=== PATIENT | male | born 1995 | race Two or more races ===

== ENCOUNTER 2018-05-06 02:23 | Emergency (ER) | payer OTHER ==
[~2018-05-06] VITALS: Ht 165.1 cm; Wt 63.5 kg
== END 2018-05-06 08:44 | disposition home or self-care (01) ==
LOC: ER 02:23
DX: R07.89 Other chest pain (principal); T39.1X5A Adverse effect of 4-Aminophenol derivatives, initial encounter; T40.7X5A Adverse effect of cannabis (derivatives), initial encounter

== ENCOUNTER 2018-05-06 11:03 | Emergency (ER) | payer OTHER ==
[~2018-05-06] VITALS: Ht 165.1 cm; Wt 63.5 kg
== END 2018-05-06 14:57 | disposition home or self-care (01) ==
LOC: ER 11:03
DX: R07.89 Other chest pain (principal); F06.4 Anxiety disorder due to known physiological condition

== ENCOUNTER → 2018-05-06 | Emergency (ER) | payer OTHER ==
[~2018-05-06] VITALS: Ht 165.1 cm; Wt 63.5 kg
== END | disposition home or self-care (01) ==
LOC: ER 21:23
DX: F06.4 Anxiety disorder due to known physiological condition (principal)

== ENCOUNTER 2023-09-17 13:13 | Inpatient (IN) | payer OTHER ==
[~2023-09-17] VITALS: Ht 165.1 cm; Wt 71.7 kg
--- NOTE | 2023-09-17 13:39 | NUR ---
SE RECIBE PTE ALERTA Y ORIENTADO X3. REFIERE DOLOR DE PECHO Y DOLOR EN BRAZO ALICE. SE MIDE SV, BP 158/100. SE REALIZA EKG Y SE PRESENTA A DRA. CHANG. SE UBICA A PTE EN K7 Y SE CONECTA A MONITOR CARDIACO Y OXIMETRIA DE PULSO.
[2023-09-17] MEDS ORDERED: MORPHINE SULFATE 4 MG/ML CARTRIDGE IV ONE (13:45)
[2023-09-17] MEDS ORDERED: FAMOtidine 10 MG/ML (4ML VIAL) IV ONE (13:45)
[2023-09-17] MEDS ORDERED: ONDANSETRON HCL 2 MG/ML VIAL IV ONE (13:45)
[2023-09-17] MEDS ORDERED: 0.9 % SODIUM CHLORIDE 1,000 ML IV ONE (13:45)
[2023-09-17] MEDS ORDERED: ONDANSETRON HCL 2 MG/ML VIAL ONE ×2 (14:02→22:09)
[2023-09-17] MEDS ORDERED: FAMOTIDINE/PF 20 MG/2 ML VIAL ONE (14:02)
--- NOTE | 2023-09-17 14:03 | NUR ---
PTE ALERTA Y ORIENTADO X3, RN HILTON EDUCA A PTE SOBRE TX MEDICO, EL MISMO REFIERE ENTENDER. SE ESTEPHANIA MUESTRAS DE LAB BAJO MEDIDAS ASEPTICAS Y SE ADMINISTRAN MEDICAMENTOS DERRICK ORDEN MEDICA. SE NOTIFICA PLACA PENDIENTE.
[2023-09-17 14:25] LABS: ABG PH 7.421 (7.35-7.45)
[2023-09-17 14:26] LABS: ABG PO2 86.2 mmHg (80-100); BICARBONATE 22.9 mmol/l (23-25); SaO2 96.7 %; allen test SATISFACTORY; o2 21 %; puncture site RADIAL LEFT
[2023-09-17 15:15] LABS: HEMATOCRIT 46.6 % (39.0-48.0); HEMOGLOBIN 16.4 g/dL (13-16.00); MEAN CELL VOLUME 90.3 fL (80.0-100.00); MEAN CORPUSCULAR HEMOGLOBIN 31.7 pg (27.00-32.0); MEAN CORPUSCULAR HGB CONC 35.1 g/dl (32.0-36.0); PLATELET COUNT 159 K/uL (150-450); RED BLOOD COUNT 5.17 M/uL (4.00-6.00); RED CELL DISTRIBUTION WIDTH 12.9 % (11.5-14.5)
[2023-09-17 15:38] LABS: AMYLASE 55 U/L (25-115); LIPASE 25 U/L (13-75)
[2023-09-17 15:44] LABS: ALBUMIN 4.6 gm/dL (3.4-5.0); BILIRUBIN TOTAL 0.59 mg/dL (0.3-1.2); CALCIUM 9.5 mg/dL (8.5-10.1); CREATININE SERUM 0.83 mg/dL (0.70-1.30); GFR 110.32; GLOBULINA 3.6 G/DL (2.4-3.5); POTASSIUM 4.15 mEq/L (3.5-5.1); TOTAL PROTEIN 8.2 gm/dL (6.4-8.2)
[2023-09-17 15:51] LABS: PH,URINE 5.5 (5.0-8.0); URINE APPEARANCE Clear; URINE BILIRRUBIN Negative (NEGATIVE); URINE BLOOD Negative; URINE COLOR Yellow; URINE GLUCOSE Negative (NEGATIVE); URINE KETONE Negative (NEGATIVE); URINE LEUKOCYTE Negative; URINE NITRATE Negative; URINE PROTEIN Negative (NEGATIVE); URINE UROBILINOGEN 0.2 E.U./dl
[2023-09-17 15:55] LABS: URINE RBC 3.6 uL (0.0-20.8)
[2023-09-17 16:03] LABS: URINE BACTERIA 1.2 uL (0.0-1933); URINE EPITHELIAL CELLS 0.9 uL (0.0-38.8)
--- NOTE | 2023-09-17 16:16 | NUR ---
SE RECIBE PTE MASCULINO DE 28 ANOS AAOX3 QUIEN AL MOMENTO REFIERE LEVE DOLOR EN PECHO Y BRAZO. PTE AL MOMENTO SE OBSERBA EN DESCANSO ABSOLUTO CONECTADO A MONITOR CARDIACO TRINA. PTE PEND A RESULTADOS DE LAB Y REALIZACION DE IMAGENES.
[2023-09-17] MEDS ORDERED: NITROGLYCERIN IN 5 % DEXTROSE 50 MG/250 ML BOTTLE IV ONE ×2 (17:13→17:15)
[2023-09-17] MEDS ORDERED: ASPIRIN 325 MG TABLET PO ONE (17:15)
[2023-09-17] MEDS ORDERED: TICAGRELOR 90 MG TABLET PO ONE (17:15)
--- NOTE | 2023-09-17 17:27 | NUR ---
SE RECIBE PACIENTE EN AREA DE ICU #2. SE COLOCA EN CAMA #3. PACIENTE ALERTA Y ORIENTADO X 3. SE CONECTA A MONITOR CARDIACO CON SATUROMETRO. SE ADMINISTRAN MEDICAMENTOS DERRICK ORDEN MEDICA. IVF'S PATENTES BAJANDO TRIDIL A 3 MLS/HR POR ANGIO #20 EN MANO IZQ, AREA THERESA DE EDEMA Y/O ERITEMA. BARANDAS ELEVADAS Y CAMA EN POSICION MAS BAJA POR TURNER SEGURIDAD.
[2023-09-17] MEDS ORDERED: 0.9 % SODIUM CHLORIDE 1,000 ML IV SCH (21:45)
[2023-09-17] MEDS ORDERED: ENOXAPARIN SODIUM 80 MG/0.8 ML SYRINGE SUBCUTANEO SCH (21:49)
[2023-09-17] MEDS ORDERED: ATORVASTATIN CALCIUM 40 MG TABLET PO SCH (21:50)
[2023-09-17] MEDS ORDERED: NITROGLYCERIN IN 5 % DEXTROSE 250 ML IV SCH (22:00)
[2023-09-17] MEDS ORDERED: ACETAMINOPHEN 500 MG GEL..CAP PO PRN (22:00)
[2023-09-17] MEDS ORDERED: MORPHINE SULFATE 4 MG/ML VIAL IV PRN (22:00)
[2023-09-17] MEDS ORDERED: ONDANSETRON HCL 4 MG in 0.9 % SODIUM CHLORIDE 50 ML IV PRN (22:00)
[2023-09-17] MEDS ORDERED: ENOXAPARIN SODIUM 80 MG/0.8 ML SYRINGE SUBCUTANEO ONE (22:10)
[2023-09-18 00:10] LABS: CKMB 1.3 NG/ML (0.5-3.6)
[2023-09-18 07:20] LABS: ALBUMIN 4.3 gm/dL (3.4-5.0); BILIRUBIN TOTAL 0.91 mg/dL (0.3-1.2); BILIRUBIN,CONJUGATED 0.2 mg/dL (0.0-0.2); BILIRUBIN,UNCONJUGATED 0.71 mg/dL (0.0-0.6); CALCIUM 9.3 mg/dL (8.5-10.1); CHOL HDL RATIO 4.3 (0-5.0); CREATININE SERUM 0.82 mg/dL (0.70-1.30); GFR 111.87; GLOBULINA 3.6 G/DL (2.4-3.5); POTASSIUM 4.18 mEq/L (3.5-5.1); TOTAL PROTEIN 7.9 gm/dL (6.4-8.2)
[2023-09-18 07:24] LABS: C-REACTIVE PROTEIN 7.62 MG/DL (0.00-0.29)
[2023-09-18 07:26] LABS: INR 1.12; PROTHROMBIN TIME 11.7 SECONDS (9.0-11.5)
[2023-09-18 07:47] LABS: PARTIAL THROMBOPLASTIN TIME 38.3 SECONDS (22.0-34.0)
[2023-09-18 07:53] LABS: HEMATOCRIT 45.5 % (39.0-48.0); MEAN CELL VOLUME 89.1 fL (80.0-100.00); MEAN CORPUSCULAR HEMOGLOBIN 31.3 pg (27.00-32.0); MEAN CORPUSCULAR HGB CONC 35.2 g/dl (32.0-36.0); PLATELET COUNT 178 K/uL (150-450)
[2023-09-18 08:43] LABS: URINE APPEARANCE Clear; URINE BILIRRUBIN Negative (NEGATIVE); URINE BLOOD Negative; URINE COLOR Yellow; URINE GLUCOSE Negative (NEGATIVE); URINE KETONE Negative (NEGATIVE); URINE LEUKOCYTE Negative; URINE NITRATE Negative; URINE PROTEIN Negative (NEGATIVE)
[2023-09-18 08:44] LABS: URINE BACTERIA 6.3 uL (0.0-1933); URINE EPITHELIAL CELLS 2.1 uL (0.0-38.8); URINE RBC 12.5 uL (0.0-20.8); URINE WBC 4.9 uL (0.0-23.2)
[2023-09-18 08:51] LABS: URINE CAST 0.15 uL (0.0-1.40)
[2023-09-18 08:54] LABS: ERYTHROCYTE SEDIMENTATION RATE 23 mm/hr
[2023-09-18] MEDS ORDERED: TICAGRELOR 90 MG TABLET PO SCH (09:00)
[2023-09-18] MEDS ORDERED: FAMOTIDINE/PF 20 MG in 0.9 % SODIUM CHLORIDE 8 ML IV PUSH SCH (09:00)
[2023-09-18 09:56] LABS: CKMB 16.9 NG/ML (0.5-3.6)
[2023-09-18 14:59] LABS: CKMB 52.9 NG/ML (0.5-3.6)
[2023-09-21] MEDS ORDERED: ENOXAPARIN SODIUM 40 MG/0.4 ML SYRINGE SUBCUTANEO SCH (09:00)
== END 2023-09-21 13:42 | disposition home or self-care (01) | DRG 315 ==
LOC: ER 13:14 → MEDI 22:16
PROVIDERS: General Practice; ADMIT Internal Medicine; ATTEND Internal Medicine
PROC: 4A12X4Z Monitoring of Cardiac Electrical Activity, External Approach (ICD-10-PCS; principal; 2023-09-17)
PROC: BW21YZZ Computerized Tomography (CT Scan) of Abdomen and Pelvis using Other Contrast (ICD-10-PCS; 2023-09-17)
PROC: BB24YZZ Computerized Tomography (CT Scan) of Bilateral Lungs using Other Contrast (ICD-10-PCS; 2023-09-17)
PROC: B246ZZZ Ultrasonography of Right and Left Heart (ICD-10-PCS; 2023-09-18)
PROC: B246ZZZ Ultrasonography of Right and Left Heart (ICD-10-PCS; 2023-09-20)
DX: I40.0 Infective myocarditis (principal); I24.9 Acute ischemic heart disease, unspecified; A05.9 Bacterial foodborne intoxication, unspecified; D72.821 Monocytosis (symptomatic)

== ENCOUNTER → 2023-10-14 | Emergency (ER) | payer OTHER ==
[~2023-10-14] VITALS: Ht 165.1 cm; Wt 68.0 kg
== END | disposition left against medical advice (07) ==
LOC: ER 08:57
DX: Z53.21 Procedure and treatment not carried out due to patient leaving prior to being seen by health care provider (principal)

== ENCOUNTER 2024-09-28 08:37 | Emergency (ER) | payer OTHER ==
[~2024-09-28] VITALS: Ht 162.6 cm; Wt 68.0 kg
[2024-09-28 09:55] LABS: BASO % 0.6 % (0.1-1.2); EOS # 0.40 (0.04-0.54); EOS % 5.1 % (0.7-7.0); LYMPH # 3.14 (1.18-3.74); LYMPH % 39.7 % (19.3-53.1); MEAN PLATELET VOLUME 9.90 fl (9.4-12.4); MONO # 0.79 (0.24-0.82); MONO % 10.0 % (4.7-12.5); NEUT # 3.50 (1.56-6.13); NEUT % 44.3 % (34.0-71.1); RED CELL DISTRIBUTION WIDTH 11.7 % (11.6-14.4)
[2024-09-28 10:36] LABS: ALT/SGPT 49.0 U/L (12-78); AST/SGOT 29.0 U/L (15-37); BILIRUBIN TOTAL 0.47 mg/dL (0.3-1.2); BUN CREA RATIO 21.0 (7.0-25.0); CREATININE SERUM 0.81 mg/dL (0.70-1.30); GFR 112.66; GLOBULINA 3.9 G/DL (2.4-3.5); GLUCOSE FASTING 89.0 mg/dL (65-100); OSMOLALITY SERUM 282.0 MOSM/KG (275-295)
[2024-09-28 10:56] LABS: URINE APPEARANCE Clear; URINE BILIRRUBIN Negative (NEGATIVE); URINE BLOOD Negative; URINE COLOR Yellow; URINE GLUCOSE Negative (NEGATIVE); URINE KETONE Negative (NEGATIVE); URINE LEUKOCYTE Negative; URINE NITRATE Negative; URINE PROTEIN Negative (NEGATIVE); URINE UROBILINOGEN 1.0 E.U./dl
[2024-09-28 11:00] LABS: URINE BACTERIA 4.7 uL (0.0-1933); URINE EPITHELIAL CELLS 2.3 uL (0.0-38.8); URINE RBC 5.4 uL (0.0-20.8); URINE WBC 12.7 uL (0.0-23.2)
[2024-09-28 11:25] LABS: URINE CAST 0.00 uL (0.0-1.40)
== END 2024-09-28 12:42 | disposition home or self-care (01) ==
LOC: ER 08:37
PROVIDERS: Emergency Medicine
DX: R07.9 Chest pain, unspecified (principal)

== ENCOUNTER 2025-02-09 06:11 | Emergency (ER) | payer OTHER ==
[~2025-02-09] VITALS: Ht 165.1 cm; Wt 68.0 kg
[2025-02-09] MEDS ORDERED: FAMOTIDINE/PF 20 MG/2 ML VIAL IV STA (08:16)
[2025-02-09] MEDS ORDERED: 0.9 % SODIUM CHLORIDE 1,000 ML IV STA ×2 (08:16→13:41)
[2025-02-09] MEDS ORDERED: ONDANSETRON HCL 2 MG/ML VIAL IV STA (08:16)
[2025-02-09 08:47] LABS: BASO % 0.3 % (0.1-1.2); EOS # 0.01 (0.04-0.54); EOS % 0.1 % (0.7-7.0); LYMPH # 0.99 (1.18-3.74); LYMPH % 8.8 % (19.3-53.1); MEAN PLATELET VOLUME 9.70 fl (9.4-12.4); MONO # 1.18 (0.24-0.82); MONO % 10.5 % (4.7-12.5); NEUT # 8.95 (1.56-6.13); NEUT % 80.0 % (34.0-71.1); RED CELL DISTRIBUTION WIDTH 11.9 % (11.6-14.4)
[2025-02-09 09:09] LABS: INR 1.14
[2025-02-09 09:28] LABS: ALT/SGPT 54.0 U/L (12-78); AST/SGOT 24.0 U/L (15-37); BILIRUBIN TOTAL 1.35 mg/dL (0.3-1.2); BUN CREA RATIO 16.0 (7.0-25.0); CREATININE SERUM 0.92 mg/dL (0.70-1.30); GFR 97.26; GLOBULINA 4.2 G/DL (2.4-3.5); GLUCOSE FASTING 119.0 mg/dL (65-100); OSMOLALITY SERUM 278.0 MOSM/KG (275-295)
[2025-02-09 10:12] LABS: COVID-19 AG NEGATIVE (NEGATIVE)
[2025-02-09 11:45] LABS: URINE APPEARANCE Clear; URINE BILIRRUBIN Negative (NEGATIVE); URINE BLOOD Negative; URINE COLOR Dark Yellow; URINE GLUCOSE Negative (NEGATIVE); URINE KETONE 15 (NEGATIVE); URINE LEUKOCYTE Negative; URINE NITRATE Negative; URINE PROTEIN Trace (NEGATIVE); URINE UROBILINOGEN 1.0 E.U./dl
[2025-02-09 11:47] LABS: URINE BACTERIA 10.2 uL (0.0-1933); URINE EPITHELIAL CELLS 2.9 uL (0.0-38.8); URINE RBC 15.2 uL (0.0-20.8); URINE WBC 9.1 uL (0.0-23.2)
[2025-02-09 12:00] LABS: URINE CAST 0.14 uL (0.0-1.40)
[2025-02-09] MEDS ORDERED: CEFTRIAXONE SODIUM 1,000 MG VIAL IM STA (13:04)
[2025-02-09] MEDS ORDERED: METRONIDAZOLE/SODIUM CHLORIDE 500 MG/100 ML PIGGYBACK IV STA (13:40)
[2025-02-09] MEDS ORDERED: CIPROFLOXACIN IN 5 % DEXTROSE 400 MG/200 ML PIGGYBAG IV STA (13:40)
[2025-02-09] MEDS ORDERED: PEPCID AC20 MG PO (14:36)
== END 2025-02-09 17:20 | disposition home or self-care (01) ==
LOC: ER 06:12
PROVIDERS: Physician Assistant Medical
DX: B34.9 Viral infection, unspecified (principal); E86.0 Dehydration; K52.89 Other specified noninfective gastroenteritis and colitis; M94.0 Chondrocostal junction syndrome [Tietze]; R11.10 Vomiting, unspecified; R11.0 Nausea; A08.8 Other specified intestinal infections; R10.84 Generalized abdominal pain; R07.89 Other chest pain; Z20.822 Contact with and (suspected) exposure to COVID-19